=== PATIENT | male | born 1995 | race Caucasian/White ===

== ENCOUNTER 2017-01-15 04:00 | Inpatient (IN) | payer OTHER ==
[~2017-01-15] VITALS: Ht 188 cm; Wt 68.0 kg
--- NOTE | ~2017-01-15 | HP ---
Unit #: [id number] #: [id number] Patient: WELLINGTON MARKHAM [id number] [place] [address] [id number] MR#: [id number] NAME: WELLINGTON MARKHAM. ROOM: P174 Age: 21 Sex: M Admission Date: 01/15/2017 : 1995 Attending Physician: John Paul Corley M.D. Admitting Physician: John Paul Corley M.D. Primary Care Physician: Generic Doctor Not In System HISTORY AND PHYSICAL HISTORY OF PRESENT ILLNESS [place] is a 21 year old admitted to [facility] with depression after an overdose of Tylenol. He was medically cleared and then transferred on a 72 hour hold to [facility] for psychiatric care. PAST MEDICAL HISTORY Nothing significant. PAST SURGICAL HISTORY Nothing reported. ALLERGIES Azithromycin. SOCIAL HISTORY He smokes less than 1/2 pack per day. Drinks alcohol socially. Admits to using marijuana frequently. FAMILY HISTORY Medically noncontributory. REVIEW OF SYSTEMS CONSTITUTIONAL: No fever or chills. HEENT: Denies any sore throat, ear pain or runny nose. CARDIOVASCULAR: Denies chest pain, irregular heart rhythm or palpitations. CHEST: Denies shortness of breath or cough. No hemoptysis. GASTROINTESTINAL: Denies nausea, vomiting, diarrhea or chronic constipation. ENDOCRINE: Denies history of increased thirst or urination. No recent significant weight loss or gain. GENITOURINARY: Denies dysuria, frequency, or hematuria. SKIN: Denies any rashes. HEMATOLOGIC: Denies history of increased bleeding or bruising. MUSCULOSKELETAL: Denies any hot, swollen joints. No generalized muscle pain. NEUROLOGIC: Denies problems with vision or speech. No frequent, severe headaches. No numbness, tingling or weakness in any extremities. Denies loss of bladder or bowel control. CURRENT MEDICATIONS 1. Desyrel 100 mg q.h.s. 2. Nicotine patch 14 mg daily. 3. Milk of Magnesia p.r.n. Unit #: [id number] #: [id number] Patient: WELLINGTON MARKHAM 4. Maalox p.r.n. 5. Tylenol p.r.n. PHYSICAL EXAMINATION GENERAL: Alert, well-nourished, in no apparent distress. VITAL SIGNS: Blood pressure 120/70, heart rate 80, respirations 16, temperature 98.6. WEIGHT: 150. HEIGHT: 6 feet 2 inches. SKIN: Warm and dry without rash or lesion. HEENT: Normocephalic. TMs not viewed. Oral and nasal passages clear. Conjunctivae clear. PERRLA. EOMs intact. NECK: Supple without lymphadenopathy or thyromegaly. HEART: Regular rate and rhythm without murmur. LUNGS: Clear. ABDOMEN: Soft, nontender. : Not done. EXTREMITIES: No evidence of cyanosis, clubbing or edema. Moves all without focal deficit. NEUROLOGICAL: Grossly within normal limits. Cranial Nerves: II: Visual park are intact. III, IV AND : Extraocular movements are intact. Pupils are equal, round and reactive to light. V: Facial sensation is grossly normal. VII: Facial movements and expression are normal. VIII: Auditory acuity grossly intact. IX, X: Uvula is midline. Phonation is normal. XI: Patient shrugs shoulders and turns head normally. XII: Tongue protrudes in the midline. Sensory and Motor Function: Sensory and motor sensation is grossly normal. Motor: moves all extremities well. Coordination: Gait is normal. Deep Tendon Reflexes: Intact. IMPRESSION Psychiatric admission. RECOMMENDATIONS PSYCHIATRIC: Per psychiatrist. MEDICAL: See no contraindication to participate in facility's activities. MEDICAL PROGNOSIS Good. MEDICAL CONDITION Stable. Dictated by... Jeanne Esquivel P.A.-C. for Michelle Charlton/inge TD: 01/15/2017 18:10 JOB #: [id number] Unit #: [id number] #: [id number] Patient: WELLINGTON MARKHAM HISTORY AND PHYSICAL Page 1 of 1 X Jeanne Esquivel HISTORY AND PHYSICAL
--- NOTE | ~2017-01-15 | PA ---
Unit #: [id number] #: [id number] Patient: TASNEEM MARKHAM [id number] [facility] [address] [place] [address] [id number] MR#: [id number] NAME: TASNEEM MARKHAM. ROOM: P174 Age: 21 Sex: M Admission Date: 01/15/2017 : 1995 Date of Assessment: 01/15/2017 Attending Physician: John Paul Corley M.D. Admitting Physician: John Paul Corley M.D. Primary Care Physician: Generic Doctor Not In System PSYCHIATRIC ASSESSMENT DATE OF SERVICE 01/15/2017. IDENTIFYING DATA Mr. Markham is a 21-year-old single white male, who is a resident of [place], [place], and was self-referred to the hospital on a voluntary basis and was initially assessed by the [facility] and then was referred to us. CHIEF COMPLAINT "I'm upset that I did something that I shouldn't have." HISTORY OF PRESENT ILLNESS Mr. Markham is a 21-year-old white male, who came to the hospital stating that he has been taking 15 to 20 Tylenol of 325 mg or 500 mg each and reports that he regressed doing it and that he believed that his girlfriend cheated on him and that it hurt and reports that he was working until 3 weeks ago and reports that he had to sell his car because of court cost and reports that he attempted to overdose a few months ago and has an open court date for possession of cannabis. His brother completed a suicide in 2016 with overdose and the patient reports a cousin got hit by a car in 2017 and he has history of treatment of depression, but denies any current treatment and his drug screen was negative and upon presentation, however, he does endorse significant depression, anxiety, feelings of hopelessness and helplessness, and suicidal ideations and as such, recommendation for inpatient level of care for safety and stabilization was made. The patient was stepped up to the inpatient unit. SUBSTANCE ABUSE HISTORY The patient reports occasional experimentation with alcohol, cannabis, cocaine, and benzodiazepine, but denies any regular drug abuse. PAST PSYCHIATRIC HISTORY The patient has had history of inpatient psychiatric hospitalization at [facility] the age of 13 as well as outpatient treatment at [facility] in the past. Review of the medical records indicate currently he is not active in treatment program, is not seeing a psychiatrist, and not taking any psychotropic medications. PAST MEDICAL HISTORY The patient's medical history is significant for asthma. ALLERGIES Unit #: [id number] #: [id number] Patient: TASNEEM MARKHAM . CURRENT MEDICATIONS . PERSONAL AND SOCIAL HISTORY A 21-year-old white male, who reports that he lives at home with his girlfriend and father and believes that his girlfriend cheated on him. He is currently unemployed and reports poor social support system. MENTAL STATUS EXAMINATION Young white male who was casually dressed with fair personal hygiene, appears to be in no acute distress or discomfort. He was awake and alert on interaction with intact orientation to time, place, and person. His mood was anxious and depressed with a congruent affect. His speech was slow and goal directed. His thought processes were disorganized with some looseness of associations and suicidal ideations. His insight and judgment remain significantly impaired. DIAGNOSTIC IMPRESSION Psychiatric: Major depressive disorder, recurrent, moderate, without psychotic features; cannabis abuse, moderate. Medical: Asthma. Stressors: Moderate psychosocial stressors. TREATMENT PLAN 1. The patient has presented with history of mood disorder, and has been decompensating and will need inpatient hospitalization for safety and stabilization. We will start him back on his home medications. We will adjust the medications and monitor response. 2. Supportive therapy was provided to the patient. 3. Safe, structured, and nourishing environment will be provided. ESTIMATED LENGTH OF STAY 4 to 5 days. ABILITY TO HELP SELF Limited. WILLINGNESS TO HELP SELF The patient appears to be willing to help self. STRENGTHS 1. Communicative. 2. Cooperative. PROBLEMS 1. Chronic dysphoric symptoms. 2. Chronic chemical dependency. 3. Poor social support system. DISCHARGE CRITERIA This will be contingent upon the patient's ability to show resolution of his depression and anxiety and his ability to stay safe to himself, particularly after discharge from the hospital. Dictated by... Unit #: [id number] #: [id number] Patient: TASNEEM MARKHAM Michelle Bee/thao TD: 01/16/2017 08:09 JOB #: [id number] PSYCHIATRIC ASSESSMENT Page 1 of 1 X John Paul Corley MD PSYCHIATRIC ASSESSMENT
--- NOTE | ~2017-01-15 | PN ---
Unit #: [id number] #: [id number] Patient: TASNEEM MARKHAM [id number] [facility] [address] [place] [address] [id number] I MR#: [id number] NAME: TASNEEM MARKHAM. ROOM: P174 Age: 21 Sex: M Admission Date: 01/15/2017 : 1995 Attending Physician: John Paul Corley M.D. Admitting Physician: John Paul Corley M.D. Primary Care Physician: Generic Doctor Not In System [facility] PROGRESS NOTES DATE OF SERVICE 01/17/2017 DISCUSSION Mr. Markham is a 21-year-old white male who was seen today. Chart was reviewed and case was discussed with the staff. He has been anxious, withdrawn, and rather seclusive to himself. Meanwhile, he has been cooperative with treatment recommendations and has been taking the medications and tolerating them fairly well with no reported side effects. MENTAL STATUS EXAMINATION Young white male who is casually dressed with fair personal hygiene, appears to be in no acute distress or discomfort. He was awake and alert on interaction with intact orientation. His mood is anxious with a congruent affect. His speech is slow and goal-directed. He denies any suicidal or homicidal ideations and also denies any auditory or visual hallucinations. His insight and judgment remain slightly impaired. TREATMENT PLAN 1. We will continue him on his current medications and treatment protocol. We will monitor his response to medications and make further adjustments as needed. 2. We will continue to follow up. Dictated by... Michelle Bee/romina TD: 01/17/2017 10:49 JOB #: [id number] Unit #: [id number] #: [id number] Patient: TASNEEM MARKHAM [facility] PROGRESS NOTES Page 1 of 1 X John Paul Corley MD PROGRESS NOTE
--- NOTE | ~2017-01-15 | PN ---
Unit #: [id number] #: [id number] Patient: TASNEEM MARKHAM [id number] [facility] [address] [place] [address] [id number] I MR#: [id number] NAME: TASNEEM MARKAHM. ROOM: P174 Age: 21 Sex: M Admission Date: 01/15/2017 : 1995 Attending Physician: John Paul Corley M.D. Admitting Physician: John Paul Corley M.D. Primary Care Physician: Generic Doctor Not In System [facility] PROGRESS NOTES DATE OF SERVICE 01/14/2017 DISCUSSION Mr. Markham is a 21-year-old white male with mood disorder who was seen today. Chart was reviewed and case was discussed with the staff. He has been anxious, withdrawn, depressed, and rather seclusive to himself. Meanwhile, he has been polite and pleasant, cooperative with treatment recommendations and has been taking the medications and tolerating them fairly well with no reported side effects. MENTAL STATUS EXAMINATION Young white male who is casually dressed with fair personal hygiene, appears to be in no acute distress or discomfort. He was awake and alert on interaction with intact orientation. His mood was anxious and depressed with congruent affect. His speech is slow and goal-directed. He reports having suicidal ideation but denies any homicidal ideation. His insight and judgment remain slightly impaired. TREATMENT PLAN 1. We will continue him on his current medications and treatment protocol. We will monitor his response to medications and make further adjustments as needed. 2. We will continue to follow up. Dictated by... Michelle Bee/romina TD: 01/16/2017 10:36 JOB #: [id number] Unit #: [id number] #: [id number] Patient: TASNEEM MARKHAM [facility] PROGRESS NOTES Page 1 of 1 X John Paul Corley MD PROGRESS NOTE
== END 2017-01-17 16:50 | disposition left against medical advice (07) | DRG 885 ==
LOC: P1E 06:30
DX: F33.1 Major depressive disorder, recurrent, moderate (principal); F17.210 Nicotine dependence, cigarettes, uncomplicated; F12.10 Cannabis abuse, uncomplicated; Z88.1 Allergy status to other antibiotic agents